=== PATIENT | female | born 1995 | race Caucasian/White ===

== ENCOUNTER 2021-04-12 16:17 | Emergency (ER) | payer OTHER ==
[2021-04-12 16:46] VITALS: BP 100/65; PULSE 85; TEMP 97.7; BMI 18.8
[2021-04-12 18:07] LABS: BASO % 1.2 % (0-2.0); EOS % 1.2 % (0-4.5); HEMATOCRIT 40.9 % (32.4-45.2); HEMOGLOBIN 14.1 GM/dL (10.7-15.3); MCH 30.4 pg (25.7-33.7); MCHC 34.3 g/dl (32.0-36.0); MEAN CELL VOLUME 88.6 fl (80-96); MEAN PLT VOLUME 9.7 fl (7.5-11.1); MONO % 7.6 % (3.8-10.2); PLATELET COUNT 230 10^3/uL (134-434); RBC 4.62 M/mm3 (3.60-5.2); RDW 12.8 % (11.6-15.6); WHITE BLOOD COUNT 10.7 K/mm3 (4.0-10.0)
[2021-04-12 18:16] LABS: INR 0.96 (0.83-1.09); PROTHROMBIN TIME (PATIENT) 11.2 SEC (9.7-13.0)
[2021-04-12 18:17] LABS: HCG,QUALITATIVE URINE Positive
[2021-04-12 18:19] LABS: PH,URINE 5.5 (5.0-8.0); URINE APPEARANCE CLEAR; URINE BILIRUBIN NEGATIVE (NEGATIVE); URINE COLOR YELLOW; URINE GLUCOSE (UA) NEGATIVE (NEGATIVE); URINE KETONE NEGATIVE (NEGATIVE); URINE LEUK ESTERASE NEGATIVE (NEGATIVE); URINE NITRITE NEGATIVE (NEGATIVE); URINE PROTEIN NEGATIVE (NEGATIVE)
[2021-04-12 18:27] LABS: CALCIUM 9.3 mg/dL (8.5-10.1)
[2021-04-12 18:28] LABS: ALBUMIN 3.8 g/dl (3.4-5.0); BLOOD UREA NITROGEN 10.5 mg/dL (7-18); CO2 25 mmol/L (21-32); GLUCOSE,RANDOM 89 mg/dL (74-106)
[2021-04-12 18:31] LABS: CREATININE 0.4 mg/dL (0.55-1.3); SGOT/AST 8 U/L (15-37); SGPT/ALT 14 U/L (13-61)
[2021-04-12 18:33] LABS: BILIRUBIN,TOTAL 0.2 mg/dL (0.2-1)
[2021-04-12 18:34] LABS: ALK PHOS 75 U/L (45-117)
[2021-04-12 20:17] LABS: CHLORIDE 107 mmol/L (98-107); SODIUM 138 mmol/L (136-145)
== END 2021-04-12 21:00 | disposition home or self-care (01) ==
LOC: JERFT 16:17 → JER 16:17 → JERFT 21:00
DX: O03.9 Complete or unspecified spontaneous abortion without complication (principal)
CPT/HCPCS: 36415; 76817-TC; 80053; 81003; 82272; 84702; 84703; 85025; 85610; 86850; 86900; 86901; 87086; 99284-25

== ENCOUNTER 2021-12-01 11:38 | Emergency (ER) | payer OTHER ==
[2021-12-01 12:16] VITALS: BP 114/70; PULSE 80; RESP 18; TEMP 98.3; BMI 18.8
== END 2021-12-01 15:23 | disposition home or self-care (01) ==
LOC: JER 11:38
DX: U07.1 COVID-19 (principal); J06.9 Acute upper respiratory infection, unspecified; R05.9 Cough, unspecified; R09.81 Nasal congestion
CPT/HCPCS: 0241U-QW; 99283-25

== ENCOUNTER 2022-04-27 09:48 | Emergency (ER) | payer OTHER ==
[2022-04-27 09:54] VITALS: BP 117/60; PULSE 88; RESP 18; TEMP 98.2; BMI 19.8
[2022-04-27 11:22] LABS: URINE APPEARANCE CLEAR; URINE BILIRUBIN NEGATIVE (NEGATIVE); URINE COLOR YELLOW; URINE GLUCOSE (UA) NEGATIVE (NEGATIVE); URINE KETONE NEGATIVE (NEGATIVE); URINE LEUK ESTERASE NEGATIVE (NEGATIVE); URINE NITRITE NEGATIVE (NEGATIVE); URINE PROTEIN NEGATIVE (NEGATIVE); URINE UROBILINOGEN 0.2 mg/dL (0.2-1.0)
[2022-04-27] MEDS ORDERED: LIDOCAINE 5% TOPICAL PATCH TP ONE (11:32)
[2022-04-27] MEDS ORDERED: KETOROLAC TROMETHAMINE 30 MG/1 ML VIAL IM ONE (11:32)
[2022-04-27] MEDS ORDERED: METHOCARBAMOL 500 MG TABLET PO ONE (11:32)
[2022-04-27 11:37] LABS: HCG,QUALITATIVE URINE Negative
[2022-04-27] MEDS ORDERED: LIDOCAINE 5% TOPICAL PATCH ONE (12:55)
[2022-04-27] MEDS ORDERED: METHOCARBAMOL 500 MG TABLET ONE (12:55)
[2022-04-27] MEDS ORDERED: KETOROLAC TROMETHAMINE 30 MG/1 ML VIAL ONE (12:55)
== END 2022-04-27 13:29 | disposition home or self-care (01) ==
LOC: JER 09:48
PROC: 3E023GC Introduction of Other Therapeutic Substance into Muscle, Percutaneous Approach (ICD-10-PCS; principal; 2022-04-27)
DX: M54.50 Low back pain, unspecified (principal)
CPT/HCPCS: 81003; 84703; 87086; 99284-25

== ENCOUNTER 2022-09-03 11:39 | Emergency (ER) | payer OTHER ==
[2022-09-03 11:47] VITALS: BP 113/73; PULSE 87; RESP 19; TEMP 98.4; BMI 18.8
== END 2022-09-03 13:03 | disposition home or self-care (01) ==
LOC: JER 11:39
DX: K64.8 Other hemorrhoids (principal)
CPT/HCPCS: 99283-25

== ENCOUNTER 2022-10-30 15:13 | Emergency (ER) | payer OTHER ==
[2022-10-30 15:35] VITALS: RESP 16; TEMP 98.3; BMI 19.8
[2022-10-30] MEDS ORDERED: IBUPROFEN 600 MG TABLET (FP) PO ONE ×2 (16:21→16:22)
[2022-10-30 16:42] VITALS: BP 111/63; PULSE 87
[2022-10-30 16:53] LABS: THROAT:GRP A STREP NOT DETECTED (NOTDETECTED)
== END 2022-10-30 16:46 | disposition home or self-care (01) ==
LOC: JERFT 15:13
DX: H66.001 Acute suppurative otitis media without spontaneous rupture of ear drum, right ear (principal); H02.9 Unspecified disorder of eyelid
CPT/HCPCS: 0241U-QW; 87651; 99283-25

== ENCOUNTER 2023-04-13 23:38 | Emergency (ER) | payer OTHER ==
[2023-04-13 23:41] VITALS: BP 116/83; PULSE 86; RESP 18; TEMP 97.6; BMI 20.7
[2023-04-14] MEDS ORDERED: LIDOCAINE HCL 2% JELLY 10 ML CARTRIDGE PR ONE (00:54)
[2023-04-14] MEDS ORDERED: SODIUM PHOSPHATE/NA BIPHOS 133 ML ENEMA PR ONE (00:54)
[2023-04-14] MEDS ORDERED: LIDOCAINE HCL 2% JELLY 6 ML TP ONE (01:03)
== END 2023-04-14 01:50 | disposition home or self-care (01) ==
LOC: JERFT 23:38 → JER 23:38
DX: K59.00 Constipation, unspecified (principal)
CPT/HCPCS: 99283-25